=== PATIENT | male | born 1965 | race Caucasian/White ===

== ENCOUNTER 2021-04-14 12:40 | Emergency (ER) | payer BC, OTHER ==
[2021-04-14] MEDS ORDERED: Meclizine 25 MG Tab PO ONE ×2 (12:55→14:02)
[2021-04-14] MEDS ORDERED: Ondansetron 4 MG/2 ML SDV IVPUSH ONE (12:55)
[2021-04-14] MEDS ORDERED: Sodium Chloride 0.9% 1,000 ML IV ONE (12:55)
--- NOTE | 2021-04-14 13:04 | EDM.PDOC ---
ED HPI GENERAL MEDICAL PROBLEM - General Chief Complaint: General Stated Complaint: DIZZY,THROWING UP,COLD SWEAT Time Seen by Provider: 04/14/21 12:42 Source of Information: Reports: Patient History Limitations: Reports: No Limitations - History of Present Illness INITIAL COMMENTS - FREE TEXT/NARRATIVE: Patient comes into the emergency department with dizziness, nausea, cold sweats. Patient states that he had a sudden abrupt onset of dizziness after trying to sit up and turn his head to the right. Patient states he became extremely dizzy room was rotating and was not able to catch his balance. He states that he began to feel nauseated and had cold sweats. He states currently while in the ER he started to feel much better especially if he is laying flat and not turnin g his head. Patient states he has had no other symptoms or concerns. Patient states has been relatively well and has no other major health problems other than hypertension, hyperlipidemia and depression concerns. Onset: Sudden Duration: Improving Location: Reports: Head Quality: Reports: Other Severity: Moderate Improves with: Reports: Rest Worsens with: Reports: Movement Associated Symptoms: Reports: Diaphoresis, Nausea/Vomiting - Related Data Allergies Allergy/AdvReac Type Severity Reaction Status Date / Time No Known Allergies Allergy Verified 04/14/21 12:57 ED ROS GENERAL - Review of Systems Review Of Systems: Comprehensive ROS is negative, except as noted in HPI. Constitutional: Reports: Diaphoresis HEENT: Reports: No Symptoms Respiratory: Reports: No Symptoms Cardiovascular: Reports: No Symptoms Endocrine: Reports: No Symptoms GI/Abdominal: Reports: No Symptoms : Reports: No Symptoms Musculoskeletal: Reports: No Symptoms Skin: Reports: No Symptoms Neurological: Reports: Dizziness. Denies: Confusion, Headache, Numbness, Paresthesia, Pre-Existing Deficit, Syncope, Tremors, Trouble Speaking, Change in Speech Psychiatric: Reports: No Symptoms Hematologic/Lymphatic: Reports: No Symptoms Immunologic: Reports: No Symptoms ED EXAM, GENERAL - Physical Exam Exam: See Below Exam Limited By: No Limitations General Appearance: Alert, WD/WN, No Apparent Distress Head: Atraumatic, Normocephalic Neck: Normal Inspection, Supple, Non-Tender, Full Range of Motion Respiratory/Chest: No Respiratory Distress, Lungs Clear, Normal Breath Sounds, No Accessory Muscle Use, Chest Non-Tender Cardiovascular: Normal Peripheral Pulses, Regular Rate, Rhythm, No Edema GI/Abdominal: Normal Bowel Sounds, Soft, Non-Tender, No Distention Back Exam: Normal Inspection, Decreased Range of Motion Extremities: Normal Inspection, Normal Range of Motion, Normal Capillary Refill Neurological: Alert, Oriented, Sensory/Motor Deficit Psychiatric: Normal Affect Skin Exam: Warm, Dry, Intact, Normal Color Course - Vital Signs Last Recorded V/S: Last Vital Signs Temp 35.4 C L 04/14/21 12:45 Pulse 72 04/14/21 12:45 Resp 16 04/14/21 12:45 BP 123/76 04/14/21 12:45 Pulse Ox 97 04/14/21 12:45 - Orders/Labs/Meds Orders: Active Orders 24 hr Category Date Time Status Sodium Chloride 0.9% @ Wide Open(1,000ml) Med 04/14/21 12:55 Ordered Sodium Chloride 0.9% [Normal Saline] 1,000 ml IV ONETIME Medication Orders Sodium Chloride (Normal Saline) 1,000 mls @ 999 mls/hr IV ONETIME ONE Stop: 04/14/21 13:55 Last Admin: 04/14/21 13:11 Dose: 999 mls/hr Documented by: Labs: Laboratory Tests 04/14/21 Range/Units 13:03 SARS CoV-2 RNA Rapid QUINCY Negative (NEGATIVE) Meds: Medications Generic Name Dose Route Start Last Admin Trade Name Freq PRN Reason Stop Dose Admin Sodium Chloride 1,000 mls @ 999 mls/hr 04/14/21 12:55 04/14/21 13:11 Normal Saline IV 04/14/21 13:55 999 mls/hr ONETIME ONE Administration Discontinued Medications Generic Name Dose Route Start Last Admin Trade Name Freq PRN Reason Stop Dose Admin Meclizine HCl 25 mg 04/14/21 12:55 04/14/21 13:11 Meclizine 25 Mg Tab PO 04/14/21 12:56 25 mg ONETIME ONE Administration Ondansetron HCl 4 mg 04/14/21 12:55 04/14/21 13:11 Ondansetron 4 Mg/2 Ml Sdv IVPUSH 04/14/21 12:56 4 mg ONETIME ONE Administration Departure - Departure Time of Disposition: 15:00 Disposition: Home, Self-Care 01 Clinical Impression: Vertigo - Discharge Information *PRESCRIPTION DRUG MONITORING PROGRAM REVIEWED*: Not Applicable *COPY OF PRESCRIPTION DRUG MONITORING REPORT IN PATIENT NIGEL: Not Applicable Instructions: Vertigo, [id number], How to Perform the Ty Maneuver, Benign Positional Vertigo Forms: ED Department Discharge Additional Instructions: 1. rest 2. increase your water intake 3. Continue all at home medications 4. Activity and diet as tolerated 5. Can take over the counter Tylenol for any pain or discomfort 6. Follow up with PCP if symptoms continue, return, or progress 7. Call with any questions or concerns Sepsis Event Note (ED) - Focused Exam Vital Signs: Vital Signs Temp Pulse Resp BP Pulse Ox 04/14/21 12:45 35.4 C L 72 16 123/76 97 - My Orders Last 24 Hours: My Active Orders 04/14/21 12:55 Sodium Chloride 0.9% @ Wide Open(1,000ml) Sodium Chloride 0.9% [Normal Saline] 1,000 ml IV ONETIME - Assessment/Plan Last 24 Hours: My Active Orders 04/14/21 12:55 Sodium Chloride 0.9% @ Wide Open(1,000ml) Sodium Chloride 0.9% [Normal Saline] 1,000 ml IV ONETIME Assessment:: 1. Vertigo 2. nausea Plan: 1. EKG completed in the ER. Results reviewed with the patient 2. IV initiated in the emergency department 3. IV fluids provided 4. Meclizine given in the ER 5. Zofran given in the ER to help with nausea 6. Patient and nursing staff was updated regarding the plan of care 7. Education provided the patient regarding activity, diet, rest, [id number] medication modalities, and follow-up care was provided 8. Patient and family are agreeable to the above plan of care 9. All questions and concerns were addressed with the patient and family prior to discharge
[2021-04-14] MEDS ORDERED: Take Home: Ondansetron 4 MG Tab.DIS, 2 Tab Pack PO ONE (14:05)
[2021-04-14 14:19] VITALS: BP 121/70; PULSE 66
== END 2021-04-14 14:15 | disposition home or self-care (01) ==
LOC: VM.ED 12:40
DX: R42 Dizziness and giddiness (principal); Z20.822 Contact with and (suspected) exposure to COVID-19
CPT/HCPCS: 93005; 96374; 99283; 99284-25; A9270-GY; J2405; J7030; U0002